=== PATIENT | female | born 1950 | race Caucasian/White ===

== ENCOUNTER 2024-05-01 09:47 | Day surgery (SDC) | payer BC, SELFPAY ==
[2024-05-01] VITALS (10 sets, daily range): BP systolic 116–150; BP diastolic 59–93; BMI 39.9
[2024-05-01 10:49] LABS: Glucose - Point of Care 151 mg/dl (70-99)
[2024-05-01 11:59] LABS: Blood Urea Nitrogen 27 mg/dl (7-17); Calcium 9.3 mg/dl (8.4-10.2); Carbon Dioxide 21 mmol/L (22-30); Chloride 110 mmol/L (98-107); Estimated Creatinine Clearance 81 ml/min; Glucose 174 mg/dl (70-99); Potassium 4.5 mmol/L (3.5-5.1); Sodium 139 mmol/L (135-145); eGFR > 60.00
--- NOTE | 2024-05-01 13:54 | ITS.CL.PN ---
Operations Chief - Procedure Note
Procedure
Procedure Note:
CARDIAC CATHETERIZATION REPORT
Date of Procedure: 05/01/2024
Referring: Dr. Juliann Ford MD
Indication: mitral valve stenosis, postive cardiac stress test
PROCEDURE(S)
1. right heart catheterization
2. left heart catheterization
3. coronary angiography
ACCESS
1. 6F right radial artery (closure: radial band)
2. 5F right antecubital vein (closure: manual hemostasis)
CATHETERS
1. 5F [place]
2. 6F JR4
3. 6F JL3.5
4. 6F AL1
5. 6F Zach
MODERATE SEDATION: 45 minutes of moderate sedation was utilized. An independent medical billing associate was present to assist with and help manage the patient's level of consciousness and physiologic status.
ULTRASOUND GUIDED VASCULAR ACCESS (right radial artery): Ultrasound was utilized for vascular access. The vessel was visualized under ultrasound and noted to be patent. An image of the vessel was stored permanently in the patient's medical record.
Under direct ultrasound guidance, vascular access was obtained using a modified Seldinger technique and a 6 [place] sheath was placed.
ULTRASOUND GUIDED VASCULAR ACCESS (right brachial vein): Ultrasound was utilized for vascular access. The vessel was visualized under ultrasound and noted to be patent. An image of the vessel was stored permanently in the patient's medical record.
Under direct ultrasound guidance, vascular access was obtained using a modified Seldinger technique and a 5 [place] sheath was placed.
HEMODYNAMIC DATA
LV 188/9 (EDP 24) mmHg
AO 134/69 (mean 94) mmHg
RA 7 mmHg
RV 56/6 (EDP 16) mmHg
PA 52/24 (mean 38) mmHg
PCWP 26 (V waves to 35) mmHg
SaO2 92.4%
SvO2 71.2%
Hb 13.0 g/dL
CO/CI 6.6/3.3 L/min/m2
SVR 1055 dsc*-5
PVR 1.8 Wood units
Aortic valve mean gradient via simultaneously measured AO/LV pressure: 36 mmHg (valve area 1.00 cm2, HR 82, SVI 40.6 mL/m2)
Mitral valve mean gradient via simultaneously measured PCWP/LV pressure: 9.8 mmHg (valve area 2.17 cm2, HR 79)
CORONARY ANGIOGRAPHY
Dominance: right
LM: Large, normal. The takeoff of the left main is low relative to the surgical valve plane.
LAD: Large vessel giving rise to a large D1. There is a focal 50% ostial stenosis of the D1 and mild non-obstructive disease in the mid LAD after the D1 takeoff.
LCx: Large vessel giving rise to a moderate caliber ramus/OM1, large OM2, and large OM3. There are trivial luminal irregularities.
RCA: Large vessel giving rise to a medium caliber RPDA, large RPL1, and small RPL2. There are trivial luminal irregularities. The takeoff of the RCA is low relative to the surgical valve plane.
RADIATION: dose 630 mGy; DAP 46.7 Gy*cm2; fluoroscopy time 16.8 min
CONCLUSIONS
1. Nonobstructive coronary artery disease as described.
2. Elevated left-sided filling pressure with relatively normal right-sided filling pressure, moderate predominantly postcapillary pulmonary hypertension, and normal cardiac output.
3. 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
4. Moderate [place] mitral valve stenosis with mean gradient 9.8 mmHg.
Copy to: Dr. Juliann Ford MD (senior sql server dba)
Signed: Sourav Delvalle MD, PhD
== END 2024-05-01 15:21 | disposition home or self-care (01) ==
LOC: CATH 09:47
PROVIDERS: Nurse Practitioner Adult Health; ATTENDING PHYSICIAN Student in an Organized Health Care Education/Training Program; FAMILY PHYSICIAN Family Medicine; OTHER PHYSICIAN Internal Medicine Cardiovascular Disease
DX: I25.10 Atherosclerotic heart disease of native coronary artery without angina pectoris (principal); R94.39 Abnormal result of other cardiovascular function study; I05.0 Rheumatic mitral stenosis; I10 Essential (primary) hypertension; I47.10 Supraventricular tachycardia, unspecified; E11.9 Type 2 diabetes mellitus without complications; E66.9 Obesity, unspecified; Z68.36 Body mass index [BMI] 36.0-36.9, adult; Z87.891 Personal history of nicotine dependence; Z79.84 Long term (current) use of oral hypoglycemic drugs; Z79.82 Long term (current) use of aspirin; Z79.85 Long-term (current) use of injectable non-insulin antidiabetic drugs
CPT/HCPCS: 99152; 99153; C1894; C1769; 76937; 80048; 82962; 93460; Q9967